=== PATIENT | female | born 1975 | race Caucasian/White ===

== ENCOUNTER 2019-07-08 10:40 | Emergency (ER) | payer MEDICAID, SELFPAY ==
[2019-07-08] VITALS (7 sets, daily range): BP systolic 150–157; BP diastolic 60–88; PULSE 55–73; RESP 16–18; TEMP 36.5–36.8; O2SAT 98–100; BMI 26.6
[2019-07-08] MEDS: LORazepam 1 MG Tablet PO ×4 (11:41→20:33)
--- NOTE | 2019-07-08 12:45 | CM.ED ---
SOCIAL WORK INFORMANT: DR. AC REASON FOR REFERRAL: RESOURCES FOR GRIEF/BEREAVEMENT COUNSELING CHIEF COMPLIANT: PATIENT PRESENTS TO EMERGENCY DEPARTMENT DUE TO ANXIETY, NERVOUS BREAKDOWN. PATIENT AND PATIENT'S SON FOUND AFTER HE COMPLETED SUICIDE VIA HANGING. MET WITH PATIENT IN ROOM. INTRODUCED ROLE AND REASON FOR REFERRAL. PATIENT UP PACING BACK IN FORTH IN ROOM UPON ENTERING. PATIENT CONTINUED TO PACE IN ROOM THROUGHOUT ASSESSMENT. PATIENT REPORTS COMMITTED SUICIDE LAST MONTH AND A FEW DAYS AGO HER SON HAD A SEIZURE. PATIENT STATES FEELING OUT OF CONTROL OF MY BODY. PATIENT REPORTS HAS BEEN UNABLE TO SLEEP AND APPETITE HAS DECREASED. PATIENT HAS 3 CHILDREN AGES 21, 16, AND 10 THAT ARE CURRENTLY WITH A FRIEND. FAMILY ABLE TO ASSIST IN CARE FOR CHILDREN. INQUIRED ABOUT SUICIDAL IDEATION. PATIENT, WITH HESITATION, STATED I WOULDN'T DO LIKE MY . I JUST DON'T FEEL MYSELF. I FEEL OUT OF CONTROL OF MY BODY. PATIENT VOICED NOT FEELING SAFE. PATIENT HAD BEEN MEDICATED ONE HOUR AGO WITH NO IMPROVEMENT. PATIENT REPORTS UNABLE TO SIT OR LAY DOWN. MUCH SUPPORT PROVIDED. PATIENT STATING TO WANT HELP. REVIEWED INSURANCE, PATIENT IS SELF PAY. COLLABORATION WITH DR. AC. DISCUSSED INPATIENT HOSPITALIZATION AND PATIENT'S SELF-PAY STATUS. CRISIS TO EVALUATE. PATIENT UPDATED A CYBER THREAT ANALYST WILL BE IN FOR EVALUATION. PATIENT VERBALIZED UNDERSTANDING. CALL TO CRISIS TO UPDATE ON REFERRAL. Isidoro DAVISON, IMPLEMENTATION LEAD, CONFECTIONERY DROPS MACHINE OPERATOR.
--- NOTE | 2019-07-08 12:49 | ED.DCSUM_ITS ---
- ER Visit Summary Date of Service: 07/08/19 Chief Complaint: Nervous breakdown History of Present Illness: The patient is a 43 F who presents for anxiety and feelings that she is overwhelmed. Patient found her last month. He hung himself. She and her 21-year-old son found him in the garage. Her son had a seizure last week. This was a first-time seizure. He had a negative work-up and has follow-up arranged. She also resides with her 16-year-old child and 10-year-old child. They are currently with a friend of the patient's, and she says they are safe. She is in the area working to make extra money. She said her car broke down yesterday. Her friend is fixing it. She does not have any suicidal ideation or plans. She just feels that she cannot take care of herself and she is spiraling out of control. She denies any drug use or regular alcohol use. Denies any history of psychiatric disorders. Denies any medical complaints. Physical Examination: Afebrile and vital signs unremarkable. Patient is standing in the room and pacing. Appears anxious and depressed, tearful. Head and neck atraumatic. Heart regular. Lungs clear. Skin appears normal. Cranial nerves grossly intact. Normal strength, sensation, gait. Test Results: Pending Emergency Department Course and Treatment: Patient presents with a grief reaction. It sounds like her symptoms are congruent with the situation. She was treated with Ativan and I had social work speak with the patient to arrange for some help. Social work spoke with the patient. She is not improving after Ativan. She says that she feels out of control and does not feel safe. I believe she may need inpatient care given that she is worsening. I ordered CBC, CMP, tox screen, alcohol, testing. Crisis will evaluate the patient for further care and disposition. I believe she is a flight risk. Since she is not suicidal, she did not qualify for a sitter. The nurse director will move her to the front of the ED for observation. Work-up is still pending, but she is medically cleared for psychiatric transfer and care. Treatment Plan: As above Disposition: Transfer to [facility] pending Impression: Grief reaction Unable to care for self This note was generated with Meituation software. It may contain incorrect words, spelling, and punctuation that were not noted in review of the chart prior to signing ED Disposition - Plan for ED Patient: Referrals: Care Physician,No Primary [Primary Care Provider] -
[2019-07-08 14:02] LABS: Absolute Lymphocyte Count 2.32 X10^3/uL (0.83-4.51); Absolute Neutrophil Count 7.8 X10^3/uL (2.0-7.7); Basophil# 0.07 X10^3/uL; Basophil% 0.6 % (0-1); Eosinophil# 0.14 X10^3/uL; Eosinophils% 1.3 % (0-5); Hematocrit 39.3 % (37-47); Hemoglobin 13.1 g/dL (12.0-15.0); Lymphocyte # 2.32 X10^3/ul (4.0); Lymphocyte % 21.2 % (19-41); Mean Corp Hgb Conc 33.3 g/dL (32-36); Mean Corpuscular Hgb 30.1 pg (27.0-32.0); Mean Corpuscular Volume 90.3 fL (81-99); Mean Platelet Vol. 10.9 fl (6.2-12.0); Monocyte# 0.63 X10^3/uL; Monocyte% 5.7 % (0-10); NRBC Flagged by Analyzer 0 % (0-5); Neutrophil # 7.77 X10^3/uL (2.7-7.7); Neutrophil % 70.9 % (47-70); Platelet Count 236 K/mm3 (150-450); RBC Distribution Width CV 11.9 % (11.6-14.6); RBC Distribution Width SD 39.5 fl (35.1-43.9); Red Blood Count 4.35 M/mm3 (4.2-5.4)
[2019-07-08 14:12] LABS: Internal QC Validated? YES +Cl - CLEAR BKGD; Pregnancy, Serum, hCG Quali. NEGATIVE Negative
[2019-07-08 14:19] LABS: AST(SGOT) 7 U/L (15-37); Alanine Aminotransfer ALT/SGPT 18 U/L (13-56); Albumin, Serum 3.8 g/dL (3.2-5.0); Alkaline Phosphatase 92 U/L (45-117); Anion Gap 4 (5-15); BUN 9 mg/dL (7-18); BUN/Creat Ratio 11.6 RATIO (10-20); Calcium,Total 9.4 mg/dL (8.5-10.1); Chloride 105 mmol/L (98-107); Creatinine, Serum 0.77 mg/dL (0.55-1.02); EST Glomerular Filtration Rate 86 mL/min (>60); Est Glom Filt Rate - Afr Amer 104 mL/min (>60); Estimated Creatinine Clearance 90.67 ml/min; Globulin 3.7 g/dL (2.2-4.2); Glucose 246 mg/dL (74-106); Potassium 4.3 mmol/L (3.5-5.1); Protein, Total 7.5 g/dL (6.4-8.2); Sodium Level 139 mmol/L (136-145)
[2019-07-08 14:23] LABS: Alcohol, Blood (Medical)-Serum < 3.0 mg/dL
--- NOTE | 2019-07-08 15:56 | EKG12_ITS ---
Test Reason : MENTAL HEALTH Blood Pressure : / mmHG Vent. Rate : 046 BPM Atrial Rate : 046 BPM P-R Int : 188 ms QRS Dur : 090 ms QT Int : 440 ms P-R-T Axes : -07 021 024 degrees QTc Int : 385 ms Sinus bradycardia Otherwise normal ECG Confirmed by CAREN MOSS, BRET ([id number]), multimedia editor JOSAFAT LA ([id number]) on 07/11/2019 1:51:26 PM Referred By: OSORIO Confirmed By:DHIRAJ FABIAN MD
--- NOTE | 2019-07-08 16:06 | ED.RN ---
NO OLD EKG
[2019-07-08 16:20] LABS: Amphetamine Urine VISTA NEGATIVE (<1000 ng/mL); Barbiturate Urine VISTA NEGATIVE (< 200 ng/mL); Benzodiazepine Urine VISTA NEGATIVE (< 200 ng/mL); Cocaine Urine VISTA NEGATIVE (< 300 ng/mL); Ecstacy Urine VISTA NEGATIVE (< 500 ng/mL); Methadone Urine VISTA NEGATIVE (< 300 ng/mL); PCP Urine VISTA NEGATIVE (< 25 ng/mL); THC Urine VISTA POSITIVE (< 50 ng/mL); Vista UDS pH Range 6
--- NOTE | 2019-07-08 16:36 | ED.RN ---
CRISIS PT PENDING AT LAY
--- NOTE | 2019-07-08 18:47 | ED.RN ---
PT CONTINUES TO PACE IN ROOM AND LEAVE ROOM. PT HAS BEEN REDIRECTED BY RESOURCE OFFICER,SECURITY AND NURSING STAFF. PT ESCALATING IN HER DEMANDS TO LEAVE. PT AT ONE POINT FOUND AT END OF SCHILLING ATTEMPTING TO LEAVE. CRISES IN TO TALK WITH PATIENT AGAIN REGARDING PLAN TO PLACE. PT DENIED AT [facility] AND INFORMATION SENT TO [facility]. PLAN TO MOVE PT UP TO ROOM CLOSE TO MAIN DESK
--- NOTE | 2019-07-08 20:37 | ED.RN ---
PT STATD THAT SHE WOULD NOT REMOVE HER BRA BECAUSE SHE SUFFERS FROM [facility] AND IF SHE TAKES IT OFF IT WILL FLARE BACK UP.PT STATES SHE ALWAYS WEARS HER BRADAY AND NIGHT. TARUN PATHOLOGY TECH NURSE MADE AWARE AND HE IS OKAY WITH BRA STAYING ON.
[2019-07-08] MEDS: Zolpidem Tartrate 5 MG Tablet PO (22:02)
--- NOTE | 2019-07-08 22:56 | ED.RN ---
patient no longer wanted to stay in the unit. patient walked out the doors. HRO followed patient out the door. HRO escorted back into the unit and placed in the room. HRO in speaking with patient at this time
[2019-07-08] MEDS: Scopolamine 1mg/72hr Patch 1 PATCH TD (23:38)
== END 2019-07-08 23:40 ==
LOC: ED 11:36
PROVIDERS: Emergency Provider Emergency Medicine
DX: F43.22 Adjustment disorder with anxiety (principal); Z72.0 Tobacco use
CPT/HCPCS: 80053; 80307; 80320; 84703; 85025; 93005; 99284; G0480